=== PATIENT | male | born 1985 | race Caucasian/White ===

== ENCOUNTER 2017-12-20 00:32 | Emergency (ER) | payer OTHER ==
[~2017-12-20] VITALS: Ht 182.9 cm; Wt 81.7 kg
[~2017-12-20 00:32] MED LIST: Bactrim Ds Tab1 EACH PO; CEPH500 PO; Cipro500 MG PO; Crutch1 EACH MISC; HYDACE5325 PO; Mupirocin22 GM TOP; Naprosyn500 MG PO; Norco 5-325 Ta1 EACH PO; Percocet 5-3251 EACH PO
[2017-12-20 04:00] LABS: Chloride (POC) 103 mmol/L (98-108); Glucose (ISTAT POC) 93 mg/dL (70-99); Hemoglobin (POC) 15.3 g/dL (13.5-17.5); Potassium (POC) 3.7 mmol/L (3.5-5.5); Sodium (POC) 139 mmol/L (135-148); Total CO2 (POC) 26 mmol/L (21-32)
== END 2017-12-20 04:35 | disposition home or self-care (01) ==
LOC: ER 00:32
PROVIDERS: Emergency Medicine
DX: R20.2 Paresthesia of skin (principal); F17.200 Nicotine dependence, unspecified, uncomplicated
CPT/HCPCS: 80047; 85014; 93005; 93010; 99284-25